=== PATIENT | male | born 1985 | race Caucasian/White ===

== ENCOUNTER 2018-09-23 06:21 | Emergency (ER) | payer BC ==
[~2018-09-23] VITALS: Ht 175.3 cm; Wt 111.0 kg
[2018-09-23 06:37] VITALS: Ht 175.3 cm; Wt 111.0 kg
[2018-09-23] MEDS ORDERED: morphine 4 MG/ML VIAL IV STA (07:18)
[2018-09-23] MEDS ORDERED: ONDANSETRON 4 MG INJ IV STA (07:18)
[2018-09-23] MEDS ORDERED: KETOROLAC 30 MG INJ IV STA (07:18)
[2018-09-23] MEDS ORDERED: SOD CHLORIDE 0.9% 1,000 ML IV STA ×2 (07:18→08:43)
[2018-09-23] MEDS ORDERED: NAPR-985 PO (08:40)
[2018-09-23] MEDS ORDERED: HYDR-4011 PO (08:40)
[2018-09-23] MEDS ORDERED: CYCL10TA7 PO (08:40)
--- NOTE | 2018-09-23 09:44 | ERD ---
ER Documentation Chief Complaint Chief Complaint pt bib self with c/o abd pain starting Tuesday, constant HPI 33-year-old male presenting with left-sided flank pain. Been going on for about a week. He denies any traumatic injuries. Denies dysuria denies fevers. Denies chest pain or shortness of breath. Has not taken medications for symptoms. Denies medical problems. NKDA. Surgical history is cholecystectomy. Social history occasionally smokes marijuana ROS All systems reviewed and are negative except as per history of present illness. Medications Home Meds Active Scripts Cyclobenzaprine Hcl* (Cyclobenzaprine Hcl*) 10 Mg Tablet, 10 MG PO TID, #15 TAB Prov:ILAN MARTINEZ PA-C 09/23/18 Naproxen* (Naprosyn*) 500 Mg Tablet, 500 MG PO BID PRN for PAIN AND/OR INFLAMMATION, #30 TAB Prov:ILAN MARTINEZ PA-C 09/23/18 Hydrocodone/Acetaminophen ([place] 5-325 Tablet) 1 Each Tablet, 1 TAB PO Q6H PRN for PAIN, #7 TAB Prov:ILAN MARTINEZ PA-C 09/23/18 Allergies Allergies: Coded Allergies: No Known Allergy (Unverified , 09/23/18) PMhx/Soc Hx Miscellaneous Medical Probl: Yes (gallbladder surg) Hx Alcohol Use: No Hx Substance Use: No Hx Tobacco Use: No FmHx Family History: No diabetes, No coronary disease, No other Physical Exam Vitals Vital Signs Date Temp Pulse Resp B/P (MAP) Pulse Ox O2 O2 Flow FiO2 Time Delivery Rate 09/23/18 98.3 84 16 116/56 98 06:37 (76) Physical Exam GENERAL: The patient is well-appearing, well-nourished, in no acute distress HEENT: Atraumatic. Conjunctivae are pink. Pupils equal, round, and reactive to light. There is no scleral icterus. Tympanic membranes clear bilaterally. Oropharynx clear. NECK: C-spine is soft and supple. There is no meningismus. There is no cervical lymphadenopathy. CHEST: Clear to auscultation bilaterally. There are no rales, wheezes or rhonchi. HEART: Regular rate and rhythm. No murmurs, clicks, rubs or gallops. ABDOMEN:Soft, nontender and nondistended. Good bowel sounds. No rebound or guarding. No gross peritonitis. No gross organomegaly or masses. Mild tenderness along the left flank. BACK: No midline no rash SKIN: Result Diagram: 09/23/18 0731 09/23/18 0731 Results 24 hrs Laboratory Tests Test 09/23/18 07:31 White Blood Count 6.6 10^3/ul Red Blood Count 5.32 10^6/ul Hemoglobin 16.3 g/dl Hematocrit 46.7 % Mean Corpuscular Volume 87.8 fl Mean Corpuscular Hemoglobin 30.6 pg Mean Corpuscular Hemoglobin Concent 34.9 g/dl Red Cell Distribution Width 12.1 % Platelet Count 278 10^3/UL Mean Platelet Volume 10.0 fl Immature Granulocytes % 0.500 % Neutrophils % 66.4 % Lymphocytes % 22.8 % Monocytes % 8.5 % Eosinophils % 1.2 % Basophils % 0.6 % Nucleated Red Blood Cells % 0.0 /100WBC Immature Granulocytes # 0.030 10^3/ul Neutrophils # 4.4 10^3/ul Lymphocytes # 1.5 10^3/ul Monocytes # 0.6 10^3/ul Eosinophils # 0.1 10^3/ul Basophils # 0.0 10^3/ul Nucleated Red Blood Cells # 0.0 10^3/ul Urine Color YELLOW Urine Clarity CLEAR Urine pH 5.0 Urine Specific [place] 1.014 Urine Ketones NEGATIVE mg/dL Urine Nitrite NEGATIVE mg/dL Urine Bilirubin NEGATIVE mg/dL Urine Urobilinogen NEGATIVE mg/dL Urine Leukocyte Esterase NEGATIVE Dionna/ul Urine Hemoglobin NEGATIVE mg/dL Urine Glucose NEGATIVE mg/dL Urine Total Protein NEGATIVE mg/dl Sodium Level 138 mmol/L Potassium Level 4.2 mmol/L Chloride Level 102 mmol/L Carbon Dioxide Level 26 mmol/L Anion Gap 10 Blood Urea Nitrogen 18 mg/dl Creatinine 0.97 mg/dl Est Glomerular Filtrat Rate mL/min > 60 mL/min Glucose Level 110 mg/dl Calcium Level 9.7 mg/dl Total Bilirubin 0.2 mg/dl Direct Bilirubin 0.00 mg/dl Indirect Bilirubin 0.2 mg/dl Aspartate Amino Transf (AST/SGOT) 21 IU/L Alanine Aminotransferase (ALT/SGPT) 33 IU/L Alkaline Phosphatase 92 IU/L Total Protein 7.7 g/dl Albumin 4.4 g/dl Globulin 3.30 g/dl Albumin/Globulin Ratio 1.33 Lipase 71 U/L Current Medications Medications Dose Sig/Makayla Start Time Status Last (Trade) Ordered Route PRN Stop Time Admin Dose Reason Admin Sodium 1,000 ml @ Q1H STAT 09/23/18 DC 09/23/18 Chloride 1,000 mls/hr IV 07:18 07:32 09/23/18 08:17 Morphine 4 mg ONCE STAT 09/23/18 DC 09/23/18 Sulfate IV 07:18 07:33 (morphine) 09/23/18 07:19 Ondansetron 4 mg ONCE STAT 09/23/18 DC 09/23/18 HCl (Zofran IV 07:18 07:32 Inj) 09/23/18 07:19 Ketorolac 30 mg ONCE STAT 09/23/18 DC 09/23/18 Tromethamine IV 07:18 07:33 (Toradol) 09/23/18 07:19 Sodium 1,000 ml @ Q1H STAT 09/23/18 09/23/18 Chloride 1,000 mls/hr IV 08:43 09:02 09/23/18 09:42 Procedures/MDM DIAGNOSTIC IMAGING REPORT Patient: SUZI WATERS : 1985 Age: 33 Sex: M MR #: [id number] DOS: 09/23/18717 Ordering MD: BLANCA MARTINEZ PA-C Location: [facility] Room/Bed: PROCEDURE: CT abdomen and pelvis without contrast. CLINICAL INDICATION: Left-sided flank pain TECHNIQUE: CT scan of the abdomen and pelvis without contrast was performed and is reconstructed at 2.5 mm contiguous axial intervals from the dome of the diaphragm to the inferior pubic rami.. The patient was scanned without intravenous contrast. Sagittal and coronal reformatted images were obtained from the axial source images. The calculated radiation dose measures 1469 mGy centimeters. The CTDI measures on 24 mGy. Individualized dose optimization technique was used for the performance of this exam. This included 1. Automated exposure control. 2. Adjustment of the mA and / or kV according to the patient's size. 3. Use of iterative reconstructed technique. COMPARISON: None. FINDINGS: The lung bases are clear of any infiltrate or nodule. No effusion is seen. The liver is of normal size and contour with no mass or ductal dilatation. There is fatty infiltration of the liver. gallbladder has been removed. No splenic, adrenal or pancreatic abnormalities present. Kidneys are of normal size and contour. No hydronephrosis or masses seen. There is a 2 mm nonobstructing stone in the midpole of the right kidney. Ureters are of normal course and caliber with no stone. No bladder mass or stone is present. Prostate and seminal vesicles are normal. There is no aneurysm. No adenopathy is present. No bowel mass or obstruction is present. 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 The appendix is normal. No phlegmon, ascites or pneumoperitoneum is visualized. There is a umbilical hernia containing fat. The osseous structures are intact. IMPRESSION: No evidence of obstructive uropathy, diverticulitis or appendicitis. 2 mm nonobstructing right renal calculus. Congenital nonrotation of the bowel. Umbilical hernia containing fat. Fatty liver. Post cholecystectomy. ER Course: 2 L normal saline given ED. Toradol, Morphine, and Zofran given in ED. MDM: 33 yr old male presenting with flank pain. I have low suspicion for nephro lithiasis, diverticulitis or diverticulosis. Low suspicion for bowel obstruction. I have low suspicion for infectious etiology. Patient's blood work, and CT are within normal limits. She may have musculoskeletal pain because on reevaluation patient did state that the pain is worse with movement. Patient is discharged stricter precautions and told to follow-up with primary care within 1-2 days for close evaluation. Patient is told if symptoms change or worsen to immediately return to the ER. All questions answered at discharge Departure Diagnosis: Primary Impression: Flank pain Condition: Stable Patient Instructions: Flank Pain, Uncertain Cause Referrals: COMMUNITY CLINICS YOU HAVE RECEIVED A MEDICAL SCREENING EXAM AND THE RESULTS INDICATE THAT YOU DO NOT HAVE A CONDITION THAT REQUIRES URGENT TREATMENT IN THE EMERGENCY DEPARTMENT. FURTHER EVALUATION AND TREATMENT OF YOUR CONDITION CAN WAIT UNTIL YOU ARE SEEN IN YOUR DOCTORS OFFICE WITHIN THE NEXT 1-2 DAYS. IT IS YOUR RESPONSIBILITY TO MAKE AN APPOINTMENT FOR FOLOW-UP CARE. IF YOU HAVE A PRIMARY DOCTOR --you should call your primary doctor and schedule an appointment IF YOU DO NOT HAVE A PRIMARY DOCTOR YOU CAN CALL OUR PHYSICIAN REFERRAL HOTLINE AT IF YOU CAN NOT AFFORD TO SEE A PHYSICIAN YOU CAN CHOSE FROM THE FOLLOWING [facility] [address] [facility] [address] [facility] [address] [facility] [address] [facility] [phone] [facility]. [facility] [address] Additional Instructions: FOLLOW UP WITH YOUR PRIMARY CARE PHYSICIAN TOMORROW.Return to this facility if you are not improving as expected. ILAN MARTINEZ PA-C Sep 23, 2018 09:44
[2018-09-23 09:49] VITALS: BP 116/56; PULSE 66; RESP 18
== END 2018-09-23 09:50 | disposition home or self-care (01) ==
LOC: FTE 06:21
DX: R10.9 Unspecified abdominal pain (principal)
CPT/HCPCS: 36415; 74176; 80053; 81003; 83690; 85025; 96361; 96374; 96375; 99285; J1885; J2270; J2405; J7030